=== PATIENT | male | born 1950 | race Caucasian/White ===

== ENCOUNTER 2019-03-07 21:36 | Inpatient (IN) | payer MEDICARE, OTHER ==
[~2019-03-07] VITALS: Ht 180.3 cm; Wt 72.1 kg
--- NOTE | 2019-03-07 21:41 | NUR ---
2129 pt BIB friends in back of pickup, pupils pinpoint, barely responds to sternal rub, RR 10, pulse ox on the 60s 2134 Dr Vasquez gave verbal order for narcan 0.4mg intranasal, 94% on room air, HR 77, RR16, 123/66 2135 [address] AC, blood draw with IV start, responds to painful stimuli, no verbal, resp even and shallow 2136 pulse ox 70s, BVM used, pt started to move extremities 2139 narcan 0.4mg IV given 2141 eyes open spontaneously, oriented to person, pulse ox 97% on room air,
[2019-03-07 22:03] LABS: BASOPHILS % (AUTO) 0.2 % (0-1); EOSINOPHILS # (AUTO) 0.1 X10'3 (0-0.9); EOSINOPHILS % (AUTO) 0.5 % (0-6); HEMATOCRIT 47.8 % (42.0-52.0); HEMOGLOBIN 15.6 g/dl (14.0-17.9); LYMPHOCYTES % (AUTO) 7.8 % (21-51); MEAN CORPUSCULAR HEMOGLOBIN 32.7 PG (27.0-31.0); MEAN CORPUSCULAR HGB CONC 32.6 g/dL (33.0-36.5); MEAN CORPUSCULAR VOLUME 100.2 FL (78-98); MEAN PLATELET VOLUME 7.2 FL (7.4-10.4); MONOCYTES # (AUTO) 0.9 X10'3 (0-0.9); MONOCYTES % (AUTO) 7.4 % (2-12); NEUTROPHILS # (AUTO) 10.7 X10'3 (1.8-7.7); NEUTROPHILS % (AUTO) 84.1 % (42-75); PLATELET COUNT 361 X10'3 (140-440); RED BLOOD COUNT 4.77 X10'6 (4.70-6.10); WHITE BLOOD COUNT 12.7 X10'3 (4.5-11.0)
--- NOTE | 2019-03-07 22:24 | NUR ---
PT IS RESTING QUIETLY ON GURNEY, RESP EVEN AND SHALLOW, PT OPENS EYES TO VOICE, NOT ANSWERING MOST QUESTIONS, REMAINS ORIENTED TO PERSON, FOLLOW SIMPLE COMMANDS, UNK WHAT PT TOOK, POSSIBLY JANNIE ER10MG CAPSULE, PILL BOTTLE WAS FOUND NEXT TO PT PER FRIENDS.
[2019-03-07 22:25] LABS: ALANINE AMINOTRANSFERASE 57 U/L (12-78); ALBUMIN 4.3 G/DL (3.4-5.0); ALKALINE PHOSPHATASE 87 IU/L (46-116); ANION GAP 13 (8-16); ASPARTATE AMINO TRANSFERASE 78 U/L (10-37); BILIRUBIN,TOTAL 0.4 MG/DL (0.1-1.0); BLOOD UREA NITROGEN 10 MG/DL (7-18); BUN/CREATININE RATIO 6.2 (5.4-32.0); CALCIUM 8.5 MG/DL (8.5-10.1); CHLORIDE 98 MMOL/L (99-107); CREATININE 1.62 MG/DL (0.60-1.10); GLUCOSE 144 MG/DL (70-104); POTASSIUM 4.4 MMOL/L (3.5-5.1); SODIUM 137 MMOL/L (135-145); TOTAL CARBON DIOXIDE 26.2 MMOL/L (24-32); TOTAL PROTEIN 8.4 G/DL (6.4-8.2); eGFR 42 ML/MIN
[2019-03-07 22:28] LABS: MAGNESIUM 2.4 MG/DL (1.5-2.4)
--- NOTE | 2019-03-07 22:30 | NUR ---
SOFT RESTRAINTS REMOVED, PT IS CALM AND COOPERATIVE,
[2019-03-07 22:32] LABS: ACETAMINOPHEN < 2.0 UG/ML (10-30); TROPONIN I 0.84 NG/ML (0.0-0.05)
--- NOTE | 2019-03-07 22:35 | NUR ---
CONTACTED POISON CONTROL, THEY RECOMMENDED WATCHING PT FOR 10 HOURS, GIVEN NARCAN NEEDED, LABS OF METABOLIC PANEL, TYLENOL AND ASPIRIN
--- NOTE | 2019-03-07 22:45 | NUR ---
DR GAMBOA AWARE OF TROPONIN LEVEL
--- NOTE | 2019-03-07 22:52 | NUR ---
DR GAMBOA AT BEDSIDE TO EVAL PT
--- NOTE | 2019-03-07 23:00 | NUR ---
IN AND OUT CATH DONE WITH STERILE TECHNIQUE, PT TOPHER WELL, 100ML OF YELLOW, CLEAR URINE OUT
[2019-03-07] MEDS ORDERED: naloxone 0.4 mg/ml inj IV ONE (23:10)
[2019-03-07] MEDS ORDERED: aspirin 81mg tab.chew PO ONE (23:10)
--- NOTE | 2019-03-07 23:14 | NUR ---
PT CONTINUES TO REST QUIETLY ON GURNEY, LIGHT SNORING RESP, AROUSEABLE TO VOICE, ORIENTED TO PERSON ONLY, NOT ANSWERING OTHER QUESTIONS, FOLLOWS SIMPLE COMMANDS, UNABLE TO DO MED REC DUE TO ALTERED MENTAL STATUS
--- NOTE | 2019-03-07 23:23 | NUR ---
REPORT TO KEENA CHESTER
[2019-03-07] MEDS ORDERED: aspirin 300mg supp.rect RC ONE (23:25)
[2019-03-07] MEDS ORDERED: naloxone 2mg/2ml inj IV ONE (23:25)
[2019-03-07 23:27] LABS: CLARITY,URINE CLEAR (Clear); COLOR,URINE YELLOW (Yellow); GLUCOSE, URINE NEGATIVE (Neg); KETONES,URINE NEGATIVE (Neg); LEUKOCYTE ESTERASE ,URINE NEGATIVE (Neg); NITRITES, URINE NEGATIVE (Neg); OCCULT BLOOD,URINE TRACE-INTACT (Neg); PROTEIN,URINE TRACE mg/dl (Neg); UROBILINOGEN,URINE 0.2 E.U/dL (0.2-1.0)
[2019-03-07 23:30] LABS: UA COLLECTION TYPE FOLEY CATH
--- NOTE | 2019-03-07 23:32 | NUR ---
Note [email or web address] in EDM - 03/07/19 at 2339 by JEFF PHONED [facility] . ANSWERING MACHINE ONLY. CONTACTED MARK [facility], [employer], FOR TRANSPORTATION ARRANGMENTS [facility]. STASTED SHE WILL COME TO [facility] TO TRANSPORT PT TO A [facility] HERSELF. " SHE CANT AFFORD NORMA CARGO " EXPECTED TA IS MIDNIGHT
[2019-03-07 23:34] LABS: URINE AMPHETAMINE SCREEN NEGATIVE (Neg); URINE BARBITUATE SCREEN NEGATIVE (Neg); URINE BENZODIAZEPINES SCREEN NEGATIVE (Neg); URINE CANNABINOID SCREEN POSITIVE (Neg); URINE COCAINE SCREEN NEGATIVE (Neg); URINE METHADONE SCREEN NEGATIVE (Neg); URINE OPIATE SCREEN POSITIVE (Neg); URINE PHENCYCLIDINE SCREEN NEGATIVE (Neg)
[2019-03-07 23:45] LABS: BACTERIA,URINE NONE SEEN /HPF (Neg); MUCUS STRANDS NONE SEEN /LPF (Neg); RBC,URINE 0-2 /HPF (0-2); SQUAMOUS EPITHELIAL CELL,UR NONE SEEN /LPF (FEW); WBC,URINE NONE SEEN /HPF (0-4)
[2019-03-07 23:46] LABS: AMORPHOUS URATES 1+; TRANSITIONAL EPI CELLS,URINE MODERATE /HPF
--- NOTE | 2019-03-07 23:46 | NUR ---
RESP HERE FOR ABGS
[2019-03-07] MEDS: normal saline 1000ml 1,000 ML IV SCH (23:59)
[2019-03-08] VITALS (11 sets, daily range): BP systolic 111–150; BP diastolic 46–85
[2019-03-08] MEDS ORDERED: potassium CL 10mEq/100ml bag 100 ML IV PRN ×2
[2019-03-08] MEDS ORDERED: magnesium hydroxide 30ml (MOM) UD suspension PO PRN
[2019-03-08] MEDS ORDERED: potassium Cl 20 mEq SR tablet PO PRN
[2019-03-08] MEDS ORDERED: acetaminophen 325mg tablet PO PRN ×2
[2019-03-08 00:01] LABS: ABG BASE EXCESS -5.1 mmol/L (-2.0-3.0); ABG PCO2 (T) 61.2 mmHg (35.0-45.0); ABG PH (T) 7.209 (7.350-7.450); ABG PO2 (T) 109.6 mmHg (83-108); ALLEN'S TEST Positive; FCOHb 1.1 % (0.5-1.5); FLOW 2 L/min; FMetHb 0.2 % (0.3-1.12); FO2Hb 95.7 % (94-100); PATIENT TEMPERATURE 36.6; RESPIRATORY RATE (OBSERVED) 14 b/min; TOTAL HEMOGLOBIN 15.1 G/dl (14.0-17.9)
[2019-03-08] MEDS: naloxone 2mg/2ml inj 2 MG in normal saline 500ml IV soln 498 ML IV SCH (00:09)
[2019-03-08] MEDS ORDERED: NO HOME MEDS (00:51)
--- NOTE | 2019-03-08 01:35 | NUR ---
LE: around 2340 Pt asked why here is here he stated "this was a failed attempt", he repeated this multiple times to me. Asked what meds he currently takes "I dont like taking any medications". Told that we recommend he take asprin for his heart d/t the elevated troponin lab, stated "I dont want any medications...i dont want asprin". narcan infusion and mivf infusing. Casper Bains, as bedside for admission around this time and updated of events.
--- NOTE | 2019-03-08 02:38 | NUR ---
PT sleeping in the supine postion . RESPONDS TO NAME AND TOUCH . IV PATENT TO THE RIGHT AC NS INFUSING AT 75ML/HR AND NALOXONE AT 0.1MCG/HR AT 25ML/HR . O2 SATS AT 96 % ON 4 LITERS OF O2 NC. RR 22 HR 80 BP 115/63
--- NOTE | 2019-03-08 04:08 | NUR ---
PT 6 HR TROPONIN AT 2.23 NOTIFIED MD CARDOZA
--- NOTE | 2019-03-08 04:14 | NUR ---
6 HR EKG COMPLETED
--- NOTE | 2019-03-08 05:00 | NUR ---
PT AWAKE, MOVING AROUND ,GRABING AND SCRACTHING HIS FACE. WASHED PT FACE WITH WASH CLOTH , PT VERBALIZED "THANK yOU, MY FACE WAS SCRATCHY. "
--- NOTE | 2019-03-08 06:01 | NUR ---
PT AWAKE AND ORIENTATED TO HIS WHERE ABOUTS. STATES HE IS IN THE HOSPITAL. WHEN ASKED WHAT HAPPENED , HE STATES " IT WAS AN ILLATTMEPT THAT WENT WRONG. YOU DONT UNDERSTAND, I AM UNDERALOT OF STRESS, " WHEN ASKED ABOUT FAMILY , PT STATES " HE DOES NOT WANT TO GET THEM INVOVLED" UPDATEED PATIENT POC AND HOSPITAL ADMISSION.
[2019-03-08] MEDS: pantoprazole 40 MG vial IV SCH (08:00)
[2019-03-08] MEDS: K, MAG and/or Phos replacement - Verify level? MC SCH ×2 (08:00)
[2019-03-08] MEDS: heparin, porcine 5000 units/ml vial SQ SCH ×3 (08:00→19:44)
--- NOTE | 2019-03-08 08:39 | NUR ---
NARCAN DRIP STOPPED, PT AWAKE AND VSS. SPOKE WITH POISON CONTROL WHO STATED THE PEAK OF THE MORPHINE OD WOULD HAVE BEEN AT 0700 THIS AM. ATTEMPTED TO GIVE ORDERED AM MEDS. PT REFUSING ALL CARE AND VOICING HE DOESNT WANT TO LIVE ANYMORE. CALLED DR. SANDOVAL TO SEE ABOUT DOWNGRADING PT TO PCU WITH A SITTER. HE WILL BE IN @0900 TO EVAL PT.
--- NOTE | 2019-03-08 09:37 | NUR ---
DR DHILLON IN TO [facility] PT.
[2019-03-08 09:57] LABS: BASOPHILS % (AUTO) 0.1 % (0-1); EOSINOPHILS % (AUTO) 0 % (0-6); HEMATOCRIT 44.9 % (42.0-52.0); LYMPHOCYTES # (AUTO) 0.3 X10'3 (1.1-4.8); LYMPHOCYTES % (AUTO) 2.4 % (21-51); MEAN CORPUSCULAR HEMOGLOBIN 32.7 PG (27.0-31.0); MEAN CORPUSCULAR HGB CONC 33.3 g/dL (33.0-36.5); MEAN CORPUSCULAR VOLUME 98.3 FL (78-98); MEAN PLATELET VOLUME 7.3 FL (7.4-10.4); MONOCYTES # (AUTO) 0.6 X10'3 (0-0.9); NEUTROPHILS % (AUTO) 92.5 % (42-75); PLATELET COUNT 297 X10'3 (140-440); RED BLOOD COUNT 4.57 X10'6 (4.70-6.10); RED CELL DISTRIBUTION WIDTH 13.3 % (11.5-14.5); WHITE BLOOD COUNT 11.9 X10'3 (4.5-11.0)
[2019-03-08 10:08] LABS: ALANINE AMINOTRANSFERASE 67 U/L (12-78); ALBUMIN 3.9 G/DL (3.4-5.0); ALKALINE PHOSPHATASE 90 IU/L (46-116); ANION GAP 10 (8-16); ASPARTATE AMINO TRANSFERASE 94 U/L (10-37); BILIRUBIN,TOTAL 0.4 MG/DL (0.1-1.0); BLOOD UREA NITROGEN 14 MG/DL (7-18); BUN/CREATININE RATIO 16.5 (5.4-32.0); CALCIUM 8.2 MG/DL (8.5-10.1); CHLORIDE 100 MMOL/L (99-107); CREATININE 0.85 MG/DL (0.60-1.10); GLUCOSE 104 MG/DL (70-104); POTASSIUM 5.4 MMOL/L (3.5-5.1); SODIUM 138 MMOL/L (135-145); TOTAL CARBON DIOXIDE 27.7 MMOL/L (24-32); TOTAL PROTEIN 7.8 G/DL (6.4-8.2); eGFR 89 ML/MIN
[2019-03-08 10:11] LABS: PHOSPHORUS 5.2 MG/DL (2.3-4.5)
--- NOTE | 2019-03-08 10:19 | NUR ---
[facility] CALLED FOR PSYCH CONSULT PER DR. SANDOVAL.
[2019-03-08] MEDS: normal saline 1000ml 1,000 ML IV SCH (13:22)
--- NOTE | 2019-03-08 14:34 | NUR ---
Patient arrived to floor at 1152 with all belongings: shorts, shirt, shoes, socks, wallet. Pt originally agitated stating "who went through my wallet," but calmed down when explained to him that it come up with him when he was dropped off in the ED. No ortiz noted; however, multiple credit cards present; patient deferring to have wallet sent down to the safe; placed in bedside drawer. Patient oriented to room with 1:1 sitter at bedside. Patient assessed for current suicide risk and appears that he is still suicidal. Patient is drowsy, yet easily aroused; vital signs stable. Patient very brief with answers and reserved. Patient also quickly drifts off into sleep. While questioning patient on alcohol use/history, patient reports he "is an alcoholic" but refuses to state how much he drinks. Patient is also unclear as to how/why he had a bottle of Nargis, but reports that he did in fact try to kill himself. When asked as to why he tried to kill himself, patient stays silent and develops a flat affect. Patient remains calm, but occasionally becomes agitated/anxious wanting to be disconnected from electrodes. health services rn has consulted with patient who reports she will contact behavioral health.
[2019-03-08] MEDS ORDERED: LORazepam 2 mg/ml vial IV PRN (15:00)
[2019-03-08] MEDS ORDERED: haloperidol lactate 5mg/ml inj IM PRN (15:00)
[2019-03-08] MEDS ORDERED: LORazepam 1 MG tablet PO PRN (15:00)
[2019-03-08] MEDS ORDERED: haloperidol 5mg tablet PO PRN (15:00)
[2019-03-08] MEDS ORDERED: LIDOcaine 2% 10ml TOPICAL JELLY (Urojet) MM ONE (15:25)
[2019-03-08 15:46] LABS: ABG BASE EXCESS -4.5 mmol/L (-2.0-3.0); ABG HCO3 24.3 mmol/L (22.0-26.0); ABG OXYGEN SATURATION 94.6 % (95-98); ABG PH (T) 7.219 (7.350-7.450); ABG PO2 (T) 82.6 mmHg (83-108); ALLEN'S TEST Positive; FLOW 2 L/min; FMetHb 0.1 % (0.3-1.12); FO2Hb 93.6 % (94-100); RESPIRATORY RATE (OBSERVED) 20 b/min; TOTAL HEMOGLOBIN 14.6 G/dl (14.0-17.9)
--- NOTE | 2019-03-08 16:30 | NUR ---
Patient with no voids this shift; bladder scan showed >999ml. Order per Dr. Cosme to place a meek catheter. Upon insertion of meek catheter, 1300ml drained and catheter clamped to help slow the drainage of urine. Will un-clamp in about an hour. Patient also more lethargic and difficult to arouse. MD aware and ABG taken; ph remains 7.2 and CO 61. RR stable in the low teens. Per Dr. Cosme, restart Narcan drip as previously ordered. Will recheck ABG at 1999.
[2019-03-08] MEDS ORDERED: naloxone 0.4 mg/ml inj IV ONE (17:05)
--- NOTE | 2019-03-08 18:51 | NUR ---
Problems reprioritized. Patient report given, questions answered & plan of care reviewed with Kian CHESTER.
[2019-03-09] VITALS (24 sets, daily range): BP systolic 98–157; BP diastolic 54–78
[2019-03-09] MEDS: naloxone 2mg/2ml inj 2 MG in normal saline 500ml IV soln 498 ML IV SCH ×5 (03:43→20:35)
[2019-03-09] MEDS: normal saline 1000ml 1,000 ML IV SCH ×2 (03:43→15:59)
[2019-03-09 05:21] LABS: BASOPHILS % (AUTO) 0.2 % (0-1); EOSINOPHILS # (AUTO) 0.1 X10'3 (0-0.9); EOSINOPHILS % (AUTO) 1.1 % (0-6); HEMATOCRIT 38.5 % (42.0-52.0); HEMOGLOBIN 12.9 g/dl (14.0-17.9); LYMPHOCYTES # (AUTO) 0.3 X10'3 (1.1-4.8); MEAN CORPUSCULAR HEMOGLOBIN 33.2 PG (27.0-31.0); MEAN CORPUSCULAR HGB CONC 33.5 g/dL (33.0-36.5); MEAN CORPUSCULAR VOLUME 98.9 FL (78-98); MEAN PLATELET VOLUME 7.6 FL (7.4-10.4); MONOCYTES # (AUTO) 0.6 X10'3 (0-0.9); MONOCYTES % (AUTO) 10.8 % (2-12); NEUTROPHILS # (AUTO) 4.9 X10'3 (1.8-7.7); NEUTROPHILS % (AUTO) 82.9 % (42-75); PLATELET COUNT 200 X10'3 (140-440); RED CELL DISTRIBUTION WIDTH 13.4 % (11.5-14.5); WHITE BLOOD COUNT 5.9 X10'3 (4.5-11.0)
[2019-03-09 05:39] LABS: ALANINE AMINOTRANSFERASE 58 U/L (12-78); ALBUMIN 3.1 G/DL (3.4-5.0); ALKALINE PHOSPHATASE 71 IU/L (46-116); ANION GAP 3 (8-16); ASPARTATE AMINO TRANSFERASE 63 U/L (10-37); BILIRUBIN,TOTAL 0.5 MG/DL (0.1-1.0); BLOOD UREA NITROGEN 15 MG/DL (7-18); BUN/CREATININE RATIO 17.9 (5.4-32.0); CALCIUM 7.7 MG/DL (8.5-10.1); CHLORIDE 105 MMOL/L (99-107); CREATININE 0.84 MG/DL (0.60-1.10); GLUCOSE 92 MG/DL (70-104); MAGNESIUM 2.2 MG/DL (1.5-2.4); PHOSPHORUS 3.1 MG/DL (2.3-4.5); SODIUM 141 MMOL/L (135-145); TOTAL CARBON DIOXIDE 32.9 MMOL/L (24-32); TOTAL PROTEIN 6.3 G/DL (6.4-8.2); eGFR 90 ML/MIN
[2019-03-09 06:00] LABS: TROPONIN I 2.02 NG/ML (0.0-0.05)
[2019-03-09] MEDS: heparin, porcine 5000 units/ml vial SQ SCH ×2 (07:12→20:00)
[2019-03-09] MEDS: thiamine inj. 100 MG, folic acid inj. 2 MG in normal saline 100ml IV soln 100 ML IV SCH ×2 (07:13→20:34)
[2019-03-09] MEDS: pantoprazole 40 MG vial IV SCH (07:13)
[2019-03-09] MEDS: MVI, adult No.4 with vit. K 10 ML in dextrose 5% water 500ml 500 ML IV SCH ×2 (07:28)
[2019-03-09] MEDS ORDERED: acetaminophen 650mg rectal suppository RC PRN (07:45)
[2019-03-09] MEDS: K, MAG and/or Phos replacement - Verify level? MC SCH (08:00)
[2019-03-09] MEDS ORDERED: naloxone 0.4 mg/ml inj IV ONE (08:55)
[2019-03-09] MEDS: ondansetron/PF 4mg/2ml inj IV PRN ×2 (09:04→17:36)
--- NOTE | 2019-03-09 09:45 | NUR ---
This AM, patient somnolent and fighting a temperature that reached up to 39 deg C. Patient packed with ice packs, fan placed, and rectal Tylenol administered as patient was unable to swallow and follow such commands. Dr. Cosme on rounds ordered a 0.4mg IV push of Narcan with orders to increase the Narcan drip rate. Patient immediately became more alert/oriented and reoriented to time/place. During this time, patient reports he received the Nargis as an old prescription for HIV. MD aware of possible HIV with orders to check HIV/Hep C. Orders also for procalcitonin lab in order to monitor elevated temperature.
[2019-03-09 11:20] LABS: HIV ANTIBODY 1&2 RAPID PRELIM REACTIVE (Neg)
[2019-03-09 11:31] LABS: ABG BASE EXCESS 4.3 mmol/L (-2.0-3.0); ABG HCO3 32.1 mmol/L (22.0-26.0); ABG OXYGEN SATURATION 93.9 % (95-98); ABG PCO2 (T) 64.3 mmHg (35.0-45.0); ABG PO2 (T) 71.7 mmHg (83-108); ALLEN'S TEST Positive; FCOHb 1.2 % (0.5-1.5); FLOW 2 L/min; FO2Hb 92.8 % (94-100); PATIENT TEMPERATURE 37.8; TOTAL HEMOGLOBIN 13.9 G/dl (14.0-17.9)
--- NOTE | 2019-03-09 13:33 | NUR ---
Spoke with poison control about patient's continued somnolence, per poison control, it is likely because of the extended release Nargis and to continue supportive care with the Narcan drip. Patient's mentation appears improved and more alert, but drowsy at times. Up to chair now with physical therapy and 1:1 sitter at the bedside. Poor appetite. Vital signs stable.
[2019-03-09] MEDS ORDERED: haloperidol 1mg tablet PO PRN (16:55)
[2019-03-09] MEDS ORDERED: haloperidol lactate 5mg/ml inj IM PRN (16:55)
--- NOTE | 2019-03-09 16:55 | NUR ---
Patient becoming more anxious/awake/agitated. Patient also becoming more paranoid. Patient requesting water and upon opening a cap from the new bottled water, stuck his thumb in it and reported that we "are trying to poison [him]." Patient proceeded to empty out the bottle of water on the hospital floor stating that we are killing him and that he wants to be released. Patient reoriented and reminded that he tried to kill himself with an entire bottle of Nargis. With that he became quiet and when asked why he tried to kill himself, he states that his 6 months ago of cancer. Patient more cooperative now at this time with tears. He admits that he is feeling paranoid and thinks that it is probably not us killing him and more likely the overdose of narcotics. Patient stating he does NOT want to kill himself and "doesn't want to ." Dr. Cosme updated and ordered Haldol PRN and to D/C the Ativan as the patient became increasingly somnolent during night time nanny. Dr. Cosme also aware that the patient is HIV positive.
--- NOTE | 2019-03-09 18:23 | NUR ---
Problems reprioritized. Patient report given, questions answered & plan of care reviewed with Kian CHESTER.
[2019-03-10] VITALS (23 sets, daily range): BP systolic 117–174; BP diastolic 60–88
[2019-03-10] MEDS: ondansetron/PF 4mg/2ml inj IV PRN (01:50)
[2019-03-10] MEDS: naloxone 2mg/2ml inj 2 MG in normal saline 500ml IV soln 498 ML IV SCH ×3 (03:40→21:13)
[2019-03-10] MEDS: normal saline 1000ml 1,000 ML IV SCH ×2 (05:19→16:59)
--- NOTE | 2019-03-10 06:26 | NUR ---
Patient in room ICU 2043. I have received report from HENRIK Langston and had the opportunity to ask questions and assume patient care.
[2019-03-10 06:36] LABS: BASOPHILS % (AUTO) 0.3 % (0-1); EOSINOPHILS % (AUTO) 0.7 % (0-6); HEMATOCRIT 35.1 % (42.0-52.0); HEMOGLOBIN 11.9 g/dl (14.0-17.9); LYMPHOCYTES # (AUTO) 0.5 X10'3 (1.1-4.8); LYMPHOCYTES % (AUTO) 7.3 % (21-51); MEAN CORPUSCULAR HEMOGLOBIN 33.5 PG (27.0-31.0); MEAN CORPUSCULAR HGB CONC 33.8 g/dL (33.0-36.5); MONOCYTES # (AUTO) 0.5 X10'3 (0-0.9); NEUTROPHILS # (AUTO) 5.4 X10'3 (1.8-7.7); NEUTROPHILS % (AUTO) 83.7 % (42-75); PLATELET COUNT 162 X10'3 (140-440); RED BLOOD COUNT 3.54 X10'6 (4.70-6.10); RED CELL DISTRIBUTION WIDTH 13.1 % (11.5-14.5); WHITE BLOOD COUNT 6.4 X10'3 (4.5-11.0)
[2019-03-10 06:51] LABS: ALANINE AMINOTRANSFERASE 49 U/L (12-78); ALBUMIN 2.7 G/DL (3.4-5.0); ALBUMIN/GLOBULIN RATIO 0.9 (1.1-1.5); ALKALINE PHOSPHATASE 60 IU/L (46-116); ANION GAP 2 (8-16); ASPARTATE AMINO TRANSFERASE 44 U/L (10-37); BILIRUBIN,TOTAL 0.5 MG/DL (0.1-1.0); BLOOD UREA NITROGEN 11 MG/DL (7-18); BUN/CREATININE RATIO 17.2 (5.4-32.0); CALCIUM 7.4 MG/DL (8.5-10.1); CHLORIDE 102 MMOL/L (99-107); CREATININE 0.64 MG/DL (0.60-1.10); GLUCOSE 81 MG/DL (70-104); MAGNESIUM 1.9 MG/DL (1.5-2.4); PHOSPHORUS 1.6 MG/DL (2.3-4.5); POTASSIUM 4.1 MMOL/L (3.5-5.1); SODIUM 137 MMOL/L (135-145); TOTAL CARBON DIOXIDE 33.4 MMOL/L (24-32); TOTAL PROTEIN 5.8 G/DL (6.4-8.2); eGFR > 90 ML/MIN
[2019-03-10] MEDS: heparin, porcine 5000 units/ml vial SQ SCH ×2 (08:00→21:13)
[2019-03-10] MEDS: K, MAG and/or Phos replacement - Verify level? MC SCH (08:05)
[2019-03-10] MEDS: thiamine inj. 100 MG, folic acid inj. 2 MG in normal saline 100ml IV soln 100 ML IV SCH ×2 (08:16→21:12)
[2019-03-10] MEDS: pantoprazole 40 MG vial IV SCH (08:16)
[2019-03-10] MEDS: MVI, adult No.4 with vit. K 10 ML in dextrose 5% water 500ml 500 ML IV SCH ×2 (10:06)
--- NOTE | 2019-03-10 18:24 | NUR ---
Problems reprioritized. Patient report given, questions answered & plan of care reviewed with HENRIK Larson.
--- NOTE | 2019-03-10 18:40 | NUR ---
Patient in room ICU 2043. I have received report from HENRIK Virk and had the opportunity to ask questions and assume patient care
[2019-03-11] VITALS (19 sets, daily range): BP systolic 125–171; BP diastolic 62–90
[2019-03-11] MEDS: naloxone 2mg/2ml inj 2 MG in normal saline 500ml IV soln 498 ML IV SCH (04:44)
[2019-03-11 04:50] LABS: BASOPHILS % (AUTO) 0.4 % (0-1); EOSINOPHILS # (AUTO) 0.1 X10'3 (0-0.9); EOSINOPHILS % (AUTO) 1.7 % (0-6); HEMATOCRIT 36.7 % (42.0-52.0); HEMOGLOBIN 12.5 g/dl (14.0-17.9); LYMPHOCYTES # (AUTO) 0.4 X10'3 (1.1-4.8); LYMPHOCYTES % (AUTO) 5.5 % (21-51); MEAN CORPUSCULAR HEMOGLOBIN 33.6 PG (27.0-31.0); MEAN CORPUSCULAR HGB CONC 34.1 g/dL (33.0-36.5); MEAN CORPUSCULAR VOLUME 98.4 FL (78-98); MEAN PLATELET VOLUME 8.1 FL (7.4-10.4); MONOCYTES # (AUTO) 0.6 X10'3 (0-0.9); MONOCYTES % (AUTO) 9.1 % (2-12); NEUTROPHILS # (AUTO) 5.5 X10'3 (1.8-7.7); NEUTROPHILS % (AUTO) 83.3 % (42-75); PLATELET COUNT 180 X10'3 (140-440); RED BLOOD COUNT 3.73 X10'6 (4.70-6.10); WHITE BLOOD COUNT 6.6 X10'3 (4.5-11.0)
[2019-03-11 05:01] LABS: ALANINE AMINOTRANSFERASE 48 U/L (12-78); ALBUMIN 2.7 G/DL (3.4-5.0); ALBUMIN/GLOBULIN RATIO 0.8 (1.1-1.5); ALKALINE PHOSPHATASE 62 IU/L (46-116); ANION GAP 5 (8-16); ASPARTATE AMINO TRANSFERASE 35 U/L (10-37); BILIRUBIN,TOTAL 0.7 MG/DL (0.1-1.0); BLOOD UREA NITROGEN 12 MG/DL (7-18); BUN/CREATININE RATIO 19.7 (5.4-32.0); CALCIUM 8.2 MG/DL (8.5-10.1); CHLORIDE 102 MMOL/L (99-107); CREATININE 0.61 MG/DL (0.60-1.10); GLUCOSE 101 MG/DL (70-104); MAGNESIUM 1.8 MG/DL (1.5-2.4); PHOSPHORUS 1.4 MG/DL (2.3-4.5); POTASSIUM 3.9 MMOL/L (3.5-5.1); SODIUM 138 MMOL/L (135-145); TOTAL CARBON DIOXIDE 30.7 MMOL/L (24-32); TOTAL PROTEIN 6.3 G/DL (6.4-8.2); eGFR > 90 ML/MIN
--- NOTE | 2019-03-11 05:15 | NUR ---
Patient in bed resting at this time and in no apparent distress. Denies any pain or discomfort. Patient also denies any suicidal ideations, and has sitter at bedside. Patient tolerating all meds and infusion well with no sign of fluid overload or complications. Care needs will continue to be attended to, and safety measures in place
--- NOTE | 2019-03-11 06:30 | NUR ---
Problems reprioritized. Patient report given, questions answered & plan of care reviewed with HENRIK Dubois.
--- NOTE | 2019-03-11 06:41 | NUR ---
Patient in room ICU 2043. I have received report from HENRIK Larson and had the opportunity to ask questions and assume patient care. Pt was sleeping, but was awoken by the nurses. Pt was alert and oriented. Will continue to monitor.
[2019-03-11] MEDS: pantoprazole 40 MG vial IV SCH (07:58)
[2019-03-11] MEDS: normal saline 1000ml 1,000 ML IV SCH (07:58)
[2019-03-11] MEDS: heparin, porcine 5000 units/ml vial SQ SCH ×2 (07:59→20:04)
[2019-03-11] MEDS: K, MAG and/or Phos replacement - Verify level? MC SCH (08:00)
[2019-03-11] MEDS: thiamine inj. 100 MG, folic acid inj. 2 MG in normal saline 100ml IV soln 100 ML IV SCH (08:11)
[2019-03-11] MEDS: MVI, adult No.4 with vit. K 10 ML in dextrose 5% water 500ml 500 ML IV SCH ×2 (08:11)
--- NOTE | 2019-03-11 11:45 | NUR ---
Pt BP elevated. Called Dr Marino for PRN, he stated he will take care of it.
[2019-03-11] MEDS: lisinopril 20mg tablet PO SCH (13:06)
--- NOTE | 2019-03-11 15:03 | NUR ---
Problems reprioritized. Patient report given, questions answered & plan of care reviewed with Ortho/Neuro RN.
--- NOTE | 2019-03-11 16:03 | NUR ---
Received report from alix CHESTER . patient was alert and oriented at arrival on unit.
--- NOTE | 2019-03-11 16:04 | NUR ---
Pt accompanied up to Ortho/Neuro. All belongings sent with pt. Tele placed.
--- NOTE | 2019-03-11 18:10 | NUR ---
Report given to HENRIK Krishnamurthy. Patient stable.
[2019-03-12 06:00] VITALS: BP 160/72
[2019-03-12 06:11] LABS: BASOPHILS % (AUTO) 0.5 % (0-1); EOSINOPHILS # (AUTO) 0.2 X10'3 (0-0.9); EOSINOPHILS % (AUTO) 2.5 % (0-6); HEMATOCRIT 38.8 % (42.0-52.0); HEMOGLOBIN 13.2 g/dl (14.0-17.9); LYMPHOCYTES # (AUTO) 0.6 X10'3 (1.1-4.8); LYMPHOCYTES % (AUTO) 8.4 % (21-51); MEAN CORPUSCULAR VOLUME 97.2 FL (78-98); MEAN PLATELET VOLUME 7.7 FL (7.4-10.4); MONOCYTES # (AUTO) 0.7 X10'3 (0-0.9); NEUTROPHILS # (AUTO) 5.3 X10'3 (1.8-7.7); NEUTROPHILS % (AUTO) 78.6 % (42-75); PLATELET COUNT 204 X10'3 (140-440); RED BLOOD COUNT 3.99 X10'6 (4.70-6.10); RED CELL DISTRIBUTION WIDTH 12.7 % (11.5-14.5); WHITE BLOOD COUNT 6.8 X10'3 (4.5-11.0)
--- NOTE | 2019-03-12 06:20 | NUR ---
Patient in room ORTHO 4016. I have received report from ESE CHESTER AND RODRIGO CHESTER and had the opportunity to ask questions and assume patient care.
[2019-03-12 06:37] LABS: ALANINE AMINOTRANSFERASE 39 U/L (12-78); ALBUMIN 2.8 G/DL (3.4-5.0); ALBUMIN/GLOBULIN RATIO 0.8 (1.1-1.5); ALKALINE PHOSPHATASE 65 IU/L (46-116); ANION GAP 9 (8-16); ASPARTATE AMINO TRANSFERASE 28 U/L (10-37); BILIRUBIN,TOTAL 0.8 MG/DL (0.1-1.0); BLOOD UREA NITROGEN 10 MG/DL (7-18); BUN/CREATININE RATIO 14.7 (5.4-32.0); CALCIUM 8.5 MG/DL (8.5-10.1); CHLORIDE 102 MMOL/L (99-107); CREATININE 0.68 MG/DL (0.60-1.10); GLUCOSE 101 MG/DL (70-104); MAGNESIUM 1.7 MG/DL (1.5-2.4); PHOSPHORUS 1.8 MG/DL (2.3-4.5); POTASSIUM 3.2 MMOL/L (3.5-5.1); SODIUM 140 MMOL/L (135-145); TOTAL CARBON DIOXIDE 28.6 MMOL/L (24-32); TOTAL PROTEIN 6.5 G/DL (6.4-8.2); eGFR > 90 ML/MIN
[2019-03-12] MEDS: K, MAG and/or Phos replacement - Verify level? MC SCH (07:15)
[2019-03-12] MEDS: pantoprazole 40 MG vial IV SCH (07:22)
[2019-03-12] MEDS: heparin, porcine 5000 units/ml vial SQ SCH ×2 (07:23→21:13)
[2019-03-12] MEDS: lisinopril 20mg tablet PO SCH (07:26)
[2019-03-12] MEDS: potassium Cl 20 mEq SR tablet PO PRN ×3 (07:30→17:55)
--- NOTE | 2019-03-12 09:00 | NUR ---
POISON CONTROL CALLED FOR UPDATE ON PATIENT. STATED THEY WILL BE CLOSING THE CASE.
[2019-03-12 10:00] VITALS: BP 163/83
[2019-03-12] MEDS: Neutra Phos packet PO PRN ×2 (10:27→21:12)
[2019-03-12 18:00] VITALS: BP 109/67
--- NOTE | 2019-03-12 18:10 | NUR ---
Problems reprioritized. Patient report given, questions answered & plan of care reviewed with ESE CHESTER.
[2019-03-12 22:00] VITALS: BP 146/76
[2019-03-13 06:00] VITALS: BP 146/83
[2019-03-13 06:23] LABS: BASOPHILS % (AUTO) 0.5 % (0-1); EOSINOPHILS # (AUTO) 0.3 X10'3 (0-0.9); EOSINOPHILS % (AUTO) 3.8 % (0-6); HEMATOCRIT 40.3 % (42.0-52.0); HEMOGLOBIN 13.7 g/dl (14.0-17.9); LYMPHOCYTES # (AUTO) 0.8 X10'3 (1.1-4.8); LYMPHOCYTES % (AUTO) 11.3 % (21-51); MEAN CORPUSCULAR HEMOGLOBIN 33.4 PG (27.0-31.0); MEAN CORPUSCULAR VOLUME 98.2 FL (78-98); MEAN PLATELET VOLUME 7.8 FL (7.4-10.4); MONOCYTES # (AUTO) 0.9 X10'3 (0-0.9); MONOCYTES % (AUTO) 12.6 % (2-12); NEUTROPHILS # (AUTO) 5.1 X10'3 (1.8-7.7); NEUTROPHILS % (AUTO) 71.8 % (42-75); PLATELET COUNT 219 X10'3 (140-440); RED BLOOD COUNT 4.11 X10'6 (4.70-6.10); RED CELL DISTRIBUTION WIDTH 13.1 % (11.5-14.5)
--- NOTE | 2019-03-13 06:30 | NUR ---
Patient in room ORTHO 4020. I have received report from HENRIK Olivarez and had the opportunity to ask questions and assume patient care.
[2019-03-13 06:43] LABS: ALANINE AMINOTRANSFERASE 53 U/L (12-78); ALBUMIN 3.1 G/DL (3.4-5.0); ALBUMIN/GLOBULIN RATIO 0.8 (1.1-1.5); ALKALINE PHOSPHATASE 68 IU/L (46-116); ANION GAP 8 (8-16); ASPARTATE AMINO TRANSFERASE 39 U/L (10-37); BILIRUBIN,TOTAL 0.6 MG/DL (0.1-1.0); BLOOD UREA NITROGEN 12 MG/DL (7-18); BUN/CREATININE RATIO 13.6 (5.4-32.0); CALCIUM 9.1 MG/DL (8.5-10.1); CHLORIDE 104 MMOL/L (99-107); CREATININE 0.88 MG/DL (0.60-1.10); GLUCOSE 104 MG/DL (70-104); MAGNESIUM 1.7 MG/DL (1.5-2.4); PHOSPHORUS 3.7 MG/DL (2.3-4.5); SODIUM 142 MMOL/L (135-145); TOTAL CARBON DIOXIDE 30.3 MMOL/L (24-32); TOTAL PROTEIN 7.1 G/DL (6.4-8.2); eGFR 86 ML/MIN
[2019-03-13] MEDS: pantoprazole 40mg Tablet.DR PO SCH (07:55)
[2019-03-13] MEDS: lisinopril 20mg tablet PO SCH (07:56)
[2019-03-13] MEDS: heparin, porcine 5000 units/ml vial SQ SCH ×2 (08:00→20:00)
[2019-03-13] MEDS: K, MAG and/or Phos replacement - Verify level? MC SCH (08:00)
[2019-03-13] MEDS ORDERED: magnesium hydroxide 30ml (MOM) UD suspension PO ONE ×2 (09:30→21:00)
[2019-03-13] MEDS: tamsulosin 0.4mg capsule PO SCH (09:39)
[2019-03-13 10:00] VITALS: BP 148/78
--- NOTE | 2019-03-13 11:59 | NUR ---
Initial: Pt admit w/ intentional OD/SI attempt. PO improving from refusal meals on admit to 50-75% avg meals. Mentation improving per MD note. LBM 03/10. Etoh 0.19 on admit as well. HEMAL d/w RN regarding thiamin/folic/MVI per MD approval. Positive HIV and hep C labs. Will continue to monitor. Rec: 1. continue regular diet 2. MVI/thiamin/folic for etoh per MD approval 3. wt per rx Addendum: 03/13/19 at [address] Amended: Links added.
--- NOTE | 2019-03-13 12:48 | NUR ---
[facility]: Evaluation of patient for possible 5150 s/p overdose attempt. Patient denies that he has been having s/s of depression, reports that he was in a good place prior to his overdose, "I was looking forward to getting paid". 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 Reports that he told his partners and they got really mad at him, he had drunk a couple of beers and "I lost it, I just went home and wanted to end it, I just felt so bad", "I didn't know what to do, I was a coward I guess, now I feel guilty". Reports that he had Nargis that he had been prescribed in the past that he didn't take because he didn't want to get addicted, and that in an impulsive suicide attempt he took it all. 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 Meds: Denies, "I'm all organic" Mental health history: Denies Housing: Lives on pot farm in [facility] [place] [facility], reports if his partners won't let him go back there then he will go to the [facility] Educated patient on the lethality of his suicide attempt and how he is geronimo that he is alive, he agreed. Called HAIM Gee and let her know of outcome of interview Recommendation: No 5150, able to dc home
[2019-03-13 18:00] VITALS: BP 141/70
--- NOTE | 2019-03-13 18:55 | NUR ---
Problems reprioritized. Patient report given, questions answered & plan of care reviewed with HENRIK Olivarez.
[2019-03-13 22:00] VITALS: BP 132/79
[2019-03-14 05:41] LABS: BASOPHILS # (AUTO) 0.1 X10'3 (0-0.2); BASOPHILS % (AUTO) 0.8 % (0-1); EOSINOPHILS # (AUTO) 0.3 X10'3 (0-0.9); EOSINOPHILS % (AUTO) 3.2 % (0-6); HEMATOCRIT 40.2 % (42.0-52.0); HEMOGLOBIN 13.7 g/dl (14.0-17.9); LYMPHOCYTES % (AUTO) 11.3 % (21-51); MEAN CORPUSCULAR HEMOGLOBIN 33.3 PG (27.0-31.0); MEAN CORPUSCULAR HGB CONC 34.1 g/dL (33.0-36.5); MEAN CORPUSCULAR VOLUME 97.5 FL (78-98); MEAN PLATELET VOLUME 7.7 FL (7.4-10.4); MONOCYTES # (AUTO) 1.1 X10'3 (0-0.9); MONOCYTES % (AUTO) 12.8 % (2-12); NEUTROPHILS # (AUTO) 6.3 X10'3 (1.8-7.7); NEUTROPHILS % (AUTO) 71.9 % (42-75); PLATELET COUNT 245 X10'3 (140-440); RED BLOOD COUNT 4.13 X10'6 (4.70-6.10); RED CELL DISTRIBUTION WIDTH 13.2 % (11.5-14.5); WHITE BLOOD COUNT 8.8 X10'3 (4.5-11.0)
[2019-03-14 06:00] VITALS: BP 135/78
--- NOTE | 2019-03-14 06:11 | NUR ---
REPORT GIVEN TO HENRIK HALL.
[2019-03-14 06:12] LABS: ALANINE AMINOTRANSFERASE 105 U/L (12-78); ALBUMIN 3.1 G/DL (3.4-5.0); ALBUMIN/GLOBULIN RATIO 0.8 (1.1-1.5); ALKALINE PHOSPHATASE 65 IU/L (46-116); ANION GAP 7 (8-16); ASPARTATE AMINO TRANSFERASE 89 U/L (10-37); BILIRUBIN,TOTAL 0.5 MG/DL (0.1-1.0); BLOOD UREA NITROGEN 14 MG/DL (7-18); BUN/CREATININE RATIO 15.2 (5.4-32.0); CALCIUM 9.6 MG/DL (8.5-10.1); CHLORIDE 104 MMOL/L (99-107); CREATININE 0.92 MG/DL (0.60-1.10); GLUCOSE 108 MG/DL (70-104); MAGNESIUM 1.9 MG/DL (1.5-2.4); PHOSPHORUS 4.7 MG/DL (2.3-4.5); POTASSIUM 5.3 MMOL/L (3.5-5.1); SODIUM 140 MMOL/L (135-145); TOTAL CARBON DIOXIDE 28.6 MMOL/L (24-32); eGFR 81 ML/MIN
[2019-03-14] MEDS: K, MAG and/or Phos replacement - Verify level? MC SCH (07:39)
[2019-03-14] MEDS: lisinopril 20mg tablet PO SCH (07:40)
[2019-03-14] MEDS: pantoprazole 40mg Tablet.DR PO SCH (07:40)
[2019-03-14] MEDS: tamsulosin 0.4mg capsule PO SCH (07:40)
[2019-03-14] MEDS: heparin, porcine 5000 units/ml vial SQ SCH ×2 (07:41→07:42)
[2019-03-14] MEDS ORDERED: tamsulosin 0.4mg capsule PO SCH (08:00)
[2019-03-14] MEDS ORDERED: tamsulosin capsule PO (09:42)
--- NOTE | 2019-03-14 09:48 | NUR ---
PAGED SS, PER DR. SANDOVAL REQUEST FOR DISCHARGE.
[2019-03-14 10:00] VITALS: BP 76/78
--- NOTE | 2019-03-14 11:00 | NUR ---
PATIENT RIDE COMING AT NOON, IV OUT PATIENT TOLERATED WELL. DISCHARGE PAPERWORK SIGNED.
== END 2019-03-14 12:40 | disposition home or self-care (01) | DRG 917 ==
LOC: ER 21:37 → ICU 2S 03-08 11:34 → ORTHO 4S 03-11 16:05
PROVIDERS: ADMIT Internal Medicine Critical Care Medicine
PROC: 4A10X4Z Monitoring of Central Nervous Electrical Activity, External Approach (ICD-10-PCS; principal; 2019-03-09)
DX: T40.602A Poisoning by unspecified narcotics, intentional self-harm, initial encounter (principal); I21.4 Non-ST elevation (NSTEMI) myocardial infarction; N17.9 Acute kidney failure, unspecified; E87.2 Acidosis; F10.129 Alcohol abuse with intoxication, unspecified; F12.90 Cannabis use, unspecified, uncomplicated; Y92.89 Other specified places as the place of occurrence of the external cause; Z59.0 Homelessness; Z79.899 Other long term (current) drug therapy
CPT/HCPCS: 36415; 36600; 70450; 71045; 80053; 80305; 80320; 80329; 81001; 82140; 82803; 82948; 83735; 84100; 84145; 84443; 84484; 85018; 85025; 86703; 86803; 87081; 93005; 94760; 95816; 96365; 96376; 97116; 97161; 97530; 99291; C9113; G0378; J1644; J2060; J2310; J2405; J3411; J3490; J7040; J7060